=== PATIENT | male | born 1960 | race Caucasian/White ===

== ENCOUNTER 2020-04-10 19:27 | Emergency (ER) | payer OTHER ==
[~2020-04-10] VITALS: Ht 167.6 cm; Wt 64.9 kg
[2020-04-10 19:31] VITALS: BP 147/90
--- NOTE | 2020-04-10 19:38 | NUR ---
59 year old male presents to ED with c/o upper left region back pain. states happened x 1 week. no injury or trauma noted. noted full range of motion to BUE. denies any other s/sx. awaiting MSE. pmhx: htn, DM allx: pcn
--- NOTE | 2020-04-10 19:39 | NUR ---
ambulated to bed 11 with steady gait.
--- NOTE | 2020-04-10 19:49 | NUR ---
Dr. Blair at bedside evaluating pt
[2020-04-10] MEDS ORDERED: IBUPROFEN 600 MG TAB PO ONE (20:00)
== END 2020-04-10 20:37 | disposition home or self-care (01) ==
LOC: MED 19:27
DX: M25.512 Pain in left shoulder (principal); M54.2 Cervicalgia; E11.9 Type 2 diabetes mellitus without complications; I10 Essential (primary) hypertension; Z88.0 Allergy status to penicillin
CPT/HCPCS: 99282